=== PATIENT | female | born 1950 | race Caucasian/White ===

== ENCOUNTER → 2017-02-15 09:32 | Outpatient (CLI) | payer MEDICARE ==
[2016-11-02 10:54] VITALS: BMI 26.4
[~2017-02-15 09:32] MED LIST: BAYER CHEWABLE81 MG PO; BENICAR20 MG PO; BYSTOLIC5 MG PO; GLUCOPHAGE XR750 MG PO; GLUCOPHAGE500 MG PO; GLYBURIDE5 M1 PO; PLAVIX75 MG PO; PREDNISONE20 MG; ULTRAM50 MG PO
== END | disposition home or self-care (01) ==
LOC: D.NM 09:32
DX: E04.1 Nontoxic single thyroid nodule (principal)

== ENCOUNTER → 2018-01-07 20:40 | Outpatient (CLI) | payer MEDICARE ==
[2016-11-02 10:54] VITALS: BMI 26.4
== END | disposition home or self-care (01) ==
LOC: D.MAMMO 10:00
DX: Z12.31 Encounter for screening mammogram for malignant neoplasm of breast (principal)

== ENCOUNTER → 2018-01-14 10:24 | Outpatient (CLI) | payer MEDICARE ==
[2016-11-02 10:54] VITALS: BMI 26.4
== END | disposition home or self-care (01) ==
LOC: D.US 10:24
DX: I65.23 Occlusion and stenosis of bilateral carotid arteries (principal)